=== PATIENT | female | born 1955 | race Caucasian/White ===

== ENCOUNTER 2022-12-15 11:59 | Emergency (ER) | payer BC, SELFPAY ==
[2022-12-15 12:33] VITALS: BP 137/76; PULSE 71; RESP 16; TEMP 37.1; O2SAT 99
--- NOTE | 2022-12-15 13:15 | ED.URI ---
HPI - URI/Sore Throat General Chief Complaint: Upper Respiratory Infection Stated Complaint: uri Time Seen by Provider: 12/15/22 13:16 Source: patient Mode of arrival: ambulatory Limitations: no limitations History of Present Illness HPI Narrative: 67-year-old female presents for COVID test. Reports that she has had nasal congestion, chills, fatigue, dry cough, body aches for 3 days. Reports fever for 1 day and then resolved. Is not taking any [id number] medications treat her symptoms. Reports that she is starting to feel better. She does not like taking any medications to treat symptoms. She has taken 2 home COVID test that were both negative. She has visitors coming tomorrow and she wants 1 more COVID test that is done in urgent care because she states they are more Scientific . All systems reviewed and negative except as noted above. Related Data Home Medications Medication Instructions Recorded Confirmed No Home Medications 12/15/22 12/15/22 Allergies Allergy/AdvReac Type Severity Reaction Status Date / Time No Known Allergies Allergy Verified 12/15/22 12:39 Review of Systems Review of Systems: CONSTITUTIONAL: Reports fever, chills, or sweats. EYES: Denies visual changes, redness, or discharge. ENT: reports rhinorrhea, congestion, sore throat. Denies otalgia. CARDIOVASCULAR: Denies chest pain, palpitations, or edema. RESPIRATORY: reports cough. Denies dyspnea. GASTROINTESTINAL: Denies abdominal pain, nausea, vomiting, or diarrhea. GENITOURINARY: Denies dysuria or hematuria. SKIN: Denies rash or itching. MUSCULOSKELETAL: Denies back pain, joint pain, or myalgia. NEUROLOGIC: Denies headache, numbness, or weakness. PSYCHIATRIC: Denies anxiety or depression. All other systems reviewed are negative, except as documented in HPI. PMFSH Comments At time of signature, agree with nursing past medical, surgical, social and family history. There is no relevant family history pertinent to the presenting complaint. Exam Narrative: GENERAL: This is a well-nourished, well-developed patient, in no apparent distress. HEAD: normocephalic, atraumatic. EYES: PERRL. Sclera clear/white. Vision is grossly intact. EARS: External ears normal, auditory canals clear and without drainage, TMs normal without perforation. Hearing grossly intact. NOSE: External nose normal with clear nasal drainage THROAT: Mucous membranes moist, posterior pharynx clear. NECK: Neck supple, non-tender without lymphadenopathy, masses or thyromegaly. CARDIOVASCULAR: Regular rate and rhythm without murmurs, gallops, or rubs. RESPIRATORY: Clear to auscultation. Breath sounds equal bilaterally. No wheezes, rales, or rhonchi. SKIN: warm, Dry, intact with no suspicious lesions or rash, good texture and turgor. NEURO: awake, alert, and oriented to person, place and time. There were no obvious focal neurologic abnormalities. EXTREMITIES: No joint tenderness, effusion, or edema noted. Course Course Level of Care: Express Care Visit Vital Signs Vital signs: Vital Signs Temperature 37.1 C 12/15/22 12:33 Pulse Rate 71 12/15/22 12:33 Respiratory Rate 16 12/15/22 12:33 Blood Pressure 137/76 12/15/22 12:33 Pulse Oximetry 99 12/15/22 12:33 Oxygen Delivery Room Air 12/15/22 12:33 Temperature 37.1 C 12/15/22 12:33 Pulse Rate 71 12/15/22 12:33 Respiratory Rate 16 12/15/22 12:33 Blood Pressure 137/76 12/15/22 12:33 Pulse Oximetry 99 12/15/22 12:33 Oxygen Delivery Room Air 12/15/22 12:33 reviewed MDM - URI/Sore Throat MDM Narrative Medical decision making narrative: negative COVID test. Patient is well-appearing. Patient is aware of diagnosis, understands and agrees to treatment plan. Anticipatory guidance given. Patient agrees to follow-up as directed and is aware of reasons to seek care at the emergency department. Portions of this record may have been created with voice recogniti
== END 2022-12-15 13:29 | disposition home or self-care (01) ==
PROVIDERS: Emergency Provider Nurse Practitioner Family
DX: J06.9 Acute upper respiratory infection, unspecified (principal); Z20.822 Contact with and (suspected) exposure to COVID-19
CPT/HCPCS: 87426; 99203; C9803; G0463

== ENCOUNTER 2023-08-23 10:50 | Emergency (ER) | payer BC, SELFPAY ==
--- NOTE | ~2023-08-23 | XR_ITS ---
XR wrist RT min 3V DATE: 08/23/2023 11:14 INDICATION: Right wrist pain following a fall this morning TECHNIQUE: 4 views COMPARISON: None FINDINGS: There is a comminuted fracture fracture of the distal radius with intra-articular extension , with up to 6 mm anterior displacement. There is dorsal inclination of the distal radial articular s urface. There is a transverse fracture at the base of the ulnar styloid process. Radiocarpal alignment is preserved. IMPRESSION: Comminuted intra-articular fracture of the distal radius with dorsal inclination of dista l radial articular surface Ulnar styloid process fracture Reviewed, dictated and finalized at location A. IMPRESSION: Comminuted intra-articular fracture of the distal radius with dorsa l inclination of distal radial articular surface Ulnar styloid process fracture
--- NOTE | 2023-08-23 10:51 | ED.UPPEXIN ---
HPI - Extremity Injury (Upper) General Chief Complaint: Extremity Injury, Upper Stated Complaint: Right Wrist Pain Time Seen by Provider: 08/23/23 10:51 Source: patient Mode of arrival: ambulatory Limitations: no limitations History of Present Illness HPI narrative: Patient is a 68-year-old female who presents with right wrist pain after fall on outstretched arm this morning at 9:30 a.m.. States she is still able to move fingers but it is tender in wrist. Denies any numbness or tingling to fingers or hand. Does report swelling and bruising to dorsal wrist. denies hitting head on fall. Related Data Home Medications Medication Instructions Recorded Confirmed No Home Medications 12/15/22 08/23/23 Allergies Allergy/AdvReac Type Severity Reaction Status Date / Time No Known Allergies Allergy Verified 08/23/23 11:27 Review of Systems Review of Systems: All systems reviewed & are unremarkable except as noted in HPI and below Constitutional: Constitutional: Denies body ache(s), Denies chills, Denies fatigue, Denies fever(s), Denies headache(s), Denies malaise and Denies weakness Eyes: Eyes: Denies blurry vision, Denies irritation and Denies loss of vision ENT: Denies otalgia, Denies headache(s), Denies nasal discharge, Denies sinus pain and Denies sore throat Cardiovascular: Cardiovascular: Denies chest pain, Denies irregular heart rhythm and Denies dyspnea Respiratory: Respiratory: Denies dyspnea Gastrointestinal: Gastrointestinal: Denies abdominal pain, Denies melena, Denies hematochezia, Denies diarrhea, Denies nausea and Denies vomiting Musculoskeletal: Musculoskeletal: Denies back pain, Denies myalgias, Reports arthralgias and Reports joint swelling Integumentary/Breasts: Skin/Breast: Denies pruritus and Denies rash Neurologic: Denies headache(s), Denies loss of vision and Denies weakness Psychiatric: Psychiatric: Reports no additional psychiatric complaints Endocrine: Endocrine: Denies fatigue PMFSH Comments At time of signature, agree with nursing past medical, surgical, social and family history. There is no relevant family history pertinent to the presenting complaint. Exam Const: General: cooperative, healthy appearing, comfortable, no acute distress and well nourished Nutritional Appearance: well nourished Orientation/consciousness: patient oriented x3 Limitations: no limitations HENMT: Head: normal to inspection, normocephalic and atraumatic Ears: hearing grossly normal bilaterally and external ears normal Face/Nose/Sinus: Normal external nose present, normal facial exam and face symmetric Face and sinus: normal facial exam and face symmetric Mouth: Yes lip normal Eyes: General: appearance normal, both eyes and all related structures Alignment and Position: alignment normal and position normal Periorbital: periorbital findings normal Eyelids: eyelids normal Pupils: Equal, round and reactive pupils present EOM: EOMs intact bilaterally Neck: Neck: normal visual inspection, full ROM and supple Chest: Chest palpation & inspection: normal inspection of the chest Resp: Effort & Inspection: normal respiratory effort and able to speak in complete sentences Auscultation: clear to auscultation bilaterally Cardio: Rate: regular rate Rhythm: regular rhythm Heart sounds: S1 normal heart sound present and S2 normal heart sound present GI: Inspection: normal to inspection Skin: General skin exam: normal color and no rashes or lesions noted Neuro: General: patient oriented x3 and moves all extremities Cranial nerves: Yes Equal, round and reactive pupils present Speech: normal speech Gait exam (Neuro): Normal gait present Extrem: General: normal to inspection, full ROM and no edema Right upper extremity: wrist tenderness of the dorsal wrist, swelling of the dorsal wrist, abnormal ROM pain with passive ROM during with extension, with flexion, with ABduction and with ADduction, ecchymosis wrist
[2023-08-23 11:03] VITALS: BP 149/90; PULSE 63; RESP 16; TEMP 36.6; O2SAT 99
--- NOTE | 2023-08-23 12:44 | PC.NURSE ---
learning and development director consulting with dr. hu nurse. pt aware of status.
== END 2023-08-23 12:59 | disposition home or self-care (01) ==
PROVIDERS: Emergency Provider Nurse Practitioner Family
DX: S52.501A Unspecified fracture of the lower end of right radius, initial encounter for closed fracture (principal); W19.XXXA Unspecified fall, initial encounter
CPT/HCPCS: 29125; 73110; 99214; A4565; G0463